=== PATIENT | female | born 1980 | race Caucasian/White ===

== ENCOUNTER 2019-06-01 14:55 | Inpatient (IN) | payer BC ==
[~2019-06-01] VITALS: Ht 162.6 cm; Wt 88.9 kg
[2019-06-01 15:14] VITALS: Ht 162.6 cm; Wt 88.9 kg
--- NOTE | 2019-06-01 15:30 | NUR ---
PT WALKED TO ROOM 11
[2019-06-01 16:01] LABS: CALCIUM 9.4 mg/dL (8.5-10.1); CARBON DIOXIDE 31.4 mmol/L (21-32); CHLORIDE SERUM 98 mmol/L (98-107); CREATININE SERUM 0.6 mg/dL (0.6-1.0); GFR1 > 60 mL/min; GLUCOSE SERUM 105 mg/dL (74-106); POTASSIUM SERUM 3.8 mmol/L (3.5-5.1); SODIUM SERUM 135 mmol/L (136-145)
[2019-06-01 16:02] LABS: PLATELET COUNT 439 x10^3mcL (130-400); RED CELL DISTRIBUTION WIDTH 18.1 % (11.5-14.5)
--- NOTE | 2019-06-01 16:06 | NUR ---
URINE SAMPLE COLLECTED, URINE DIP AND HCG DONE.
[2019-06-01 16:07] LABS: ALBUMIN 3.4 g/dL (3.4-5.0); ALKALINE PHOSPHATASE 77 U/L (46-116); ALT/SGPT 17 U/L (14-59); AST/SGOT 10 U/L (15-37); BILIRUBIN TOTAL 0.5 mg/dL (0.20-1.00); LIPASE 71 IU/L (73-393); TOTAL PROTEIN, SERUM 7.7 g/dL (6.4-8.2)
--- NOTE | 2019-06-01 16:12 | NUR ---
PT WAS MEDICATED WITH MORPHINE AND ZOFRAN PER MD ORDER.
[2019-06-01 16:15] LABS: MONOCYTE 4 % (0-7); SEGMENTED NEUTROPHILS 88 % (37-75)
[2019-06-01 16:20] LABS: rbc morphology (normal/abnorm) ABNORMAL (NORMAL)
[2019-06-01 16:21] LABS: ovalocyte/elliptocyte 1+; schistocyte (helmet cell) 1+
--- NOTE | 2019-06-01 16:43 | NUR ---
PT WAS DONE CT AND BACK TO HER ROOM. SL ESTABLISHED ON LH. 20G. NS0.9% STARTED TO RUN.
--- NOTE | 2019-06-01 18:25 | NUR ---
PT WAS ADMITED TO M/S ROOM OBTAINED BUT WAIT TO GO OR FIRST, THEN TRANSFER TO FLOOR.
--- NOTE | 2019-06-01 19:18 | NUR ---
PT HAS [id number]. REPORT WAS CALLED AND GIVEN TO YVON VALDIVIA.
--- NOTE | 2019-06-01 19:55 | NUR ---
PT TAKEN TO OR WITH SKIP TOVAR VIA [facility] REPORT GIVEN TO HIM WELL. PT [id number] VSS
--- NOTE | 2019-06-01 21:52 | NUR ---
[facility] ACCOMPANIED BY 2 RNS. PT A/A/O X 4, CALM, COOPERATIVE; WEARS CONTACTS (W/ PT). GENERALIZED WEAKNESS, ABLE TO SCOOT OVER FROM GUERNEY TO BED ON HER OWN; FALL RISK PROTOCOL IN PLACE. DENIES CHEST PAIN OR DISCOMFORT AT THIS TIME. NO ACUTE RESPIRATORY DISTRESS NOTED. ABD SOFT, ROUND, HYPOACTIVE BOWEL SOUNDS X 4 QUADS, LAST BM 05/31/19, LOOSE, POOR PO INTAKE > 3 DAYS, ABD W/ 4X INCISION (1 W/ KISHA DRAIN W/ LARGE AMOUNT OF SEROSANGUINOUS FLUID), ALL SUTURED/EUNICE/BAND AID. IV SITE LH 20G, CDI. ORIENTED PT TO ROOM, BED CONTROLS, CALL LIGHT SYSTEM. SIDE RAILS UP X 2, BED IN LOW POSITION. WILL ENDORSE TO SKIP CARREON.
[2019-06-01 22:07] VITALS: BP 118/59
--- NOTE | 2019-06-02 00:49 | NUR ---
PT C/O PAIN 05/04. MEDIACTED NORCO 5/325MG PO ORDERED. WILL CONTINUE TO MONITOR.
--- NOTE | 2019-06-02 05:20 | NUR ---
PT AWAKE,ALERT.NO SOB NOTED.C/O SURGICAL PAIN 07/04.WILL MEDICATE ORDERED.PT URINATED AND AMBULATED.KISHA DRAINED WITH SEROSANGUINOUS FLUID.BED IN LOWEST POSITION,CALL LIGHT WITHIN REACH. WILL CONTINUE TO MONITOR.
--- NOTE | 2019-06-02 05:33 | NUR ---
PT C/O SURGICAL PAIN. MEDIACTED DILAUDID 1MG IVP ORDERED. WILL CONTINUE TO MONITOR.
[2019-06-02 06:14] VITALS: BP 112/77
--- NOTE | 2019-06-02 07:22 | NUR ---
CARE ENDORSED TO DAY NURSE MAKENZIE.
[2019-06-02 08:00] VITALS: BP 102/70
--- NOTE | 2019-06-02 08:00 | NUR ---
PATIENT IS IN BED, BED IS TO THE LOWEST POSITION. PATIENT IS AWAKE, ALERT AND ORIENTED X 4. PATIENT IS ON ROOM AIR, BREATHING ADEQUATELY WITH NO SIGNS OF RESPIRATORY DISTRESS NOTED. PATIENT HAS IV ACCESS NOTED TO , SALINE LOCKED. ABDOMEN HAS 3 INCISIONS NOTED, 1 KISHA DRAIN WITH SUTURES, EUNICE AND BANDAID APPLIED. PER NIGHT NURSE PATIENT IS ABLE TO AMBULATE AND USE THE RESTROOM WITH ASSISTANCE. PATIENTS HEELS ARE OFF LOADED WITH PILLOWS, CALL LIGHT IS WITHIN REACH. WILL CONTINUE TO MONITOR.
[2019-06-02 08:40] LABS: CALCIUM 8.9 mg/dL (8.5-10.1); CHLORIDE SERUM 100 mmol/L (98-107); CREATININE SERUM 0.6 mg/dL (0.6-1.0); GFR1 > 60 mL/min; GLUCOSE SERUM 134 mg/dL (74-106); MAGNESIUM 1.7 mg/dL (1.8-2.4); PHOSPHOROUS 3.9 mg/dL (2.5-4.9); POTASSIUM SERUM 4.2 mmol/L (3.5-5.1); SODIUM SERUM 134 mmol/L (136-145)
[2019-06-02 08:46] LABS: BASOPHIL % 0 % (0-2); PLATELET COUNT 409 x10^3mcL (130-400); RED CELL DISTRIBUTION WIDTH 17.7 % (11.5-14.5)
[2019-06-02 10:31] VITALS: BP 107/71
--- NOTE | 2019-06-02 11:54 | NUR ---
PT EVALUATED BY DR. RHOADES AND MEDICAL TEAM. UPDATED ON CONDITION AND POC. MADE AWARE SHE HAD RUPTURED APPENDIX AND WOULD REQUIRE EXTRA DAYS OF HOSPITALIZATION FOR ATB. PT WAS THEN ASSISTED TO BR AND ACTIVITY WAS TOLERATED WELL. EMPTYED KISHA DRAIN AND NOTED IT WAS SANGUINOUS BUT CLOUDY, ABOUT 60ML. DR. ISAACS AND DR. WARD WHERE SHOWN DRAINAGE. DR. ISAACS STATED HE WOULD NOTIFY SURGEON OF FINDINGS, NO FURTHER ORDERS AT THIS TIME. ATTENDING NURSE MADE AWARE.
--- NOTE | 2019-06-02 12:00 | NUR ---
PATIENT STATED THAT THEY HAVE PAIN AT THIS TIME. MEDICATION GIVEN, SEE EMAR. WILL CONTINUE TO MONITOR AND REASSESS.
[2019-06-02 16:50] VITALS: BP 109/76
--- NOTE | 2019-06-02 18:30 | NUR ---
PATIENT IN BED RESTINH COMFORTABLY. PATIENT GIVEN ICE PACK FOR ABD DISCOMFT. PATIENT STABLE WILL CONTINUE TO MONITOR.
--- NOTE | 2019-06-02 20:00 | NUR ---
PATIENT RECEIVED AT THE START OF THE SHIFT AWAKE, ALERT, ORIENTED X4 IN BED. RESPIRATION EVEN AND UNLABORED, ON ROOM AIR. SALINE LOCK TO LEFT HAND PATENT AND INTACT. VOIDING FREELY WITHOUT DIFFICULTY. GENERALIZED WEAKNESS TO EXTREMITIES, NEEDS ASSISTANCE AMBULATING. SURGICAL INCISION TO ABDOMEN X3 WITH SUTURES/EUNICE COVERED WITH BANDAID WITH KISHA DRAIN. C/O INCISIONAL PAIN TO ABDOMEN, 9/10. MEDICATED WITH NORCO 5/325 MG PO ORDERED. ON CONTACT ISOLATION FOR HX OF MRSA NARES. WILL CONTINUE TO MONITOR.
--- NOTE | 2019-06-02 21:27 | NUR ---
PATIENT STILL COMPLAINING OF SURGICAL INCISION TO ABDOMEN, PS 6-5. MEDICATED WITH TORADOL 10 MG PO ORDERED. WILL CONTINUE TO MONITOR.
[2019-06-02 21:32] VITALS: BP 116/62
[2019-06-03 05:39] VITALS: BP 125/81
--- NOTE | 2019-06-03 05:59 | NUR ---
PATIENT RESTING IN BED. RESPIRATION EVEN AND UNLABORED, ON ROOM AIR. COMPLAINED OF ABDOMINAL PAIN, PS 10/10. MEDICATED WITH NORCO 5/325 MG PO. SURGICAL INCISION INTACT. KISHA DRAIN INTACT. ASSISTED WITH NEEDS. SAFETY OBSERVED. PLACED BED IN THE LOWEST POSITION. PLACED CALL LIGHT WITHIN REACH AT ALL TIMES. ON CONTACT ISOLATION FOR HX OF MRSA NARES.
[2019-06-03 06:43] LABS: CALCIUM 9.2 mg/dL (8.5-10.1); CARBON DIOXIDE 28.8 mmol/L (21-32); CHLORIDE SERUM 102 mmol/L (98-107); CREATININE SERUM 0.7 mg/dL (0.6-1.0); GFR1 > 60 mL/min; GLUCOSE SERUM 97 mg/dL (74-106); MAGNESIUM 1.9 mg/dL (1.8-2.4); PHOSPHOROUS 3.3 mg/dL (2.5-4.9); POTASSIUM SERUM 3.9 mmol/L (3.5-5.1); SODIUM SERUM 139 mmol/L (136-145)
[2019-06-03 06:51] LABS: BASOPHIL % 0.1 % (0-2)
[2019-06-03 07:12] LABS: PLATELET COUNT 437 x10^3mcL (130-400); RED CELL DISTRIBUTION WIDTH 18.4 % (11.5-14.5)
[2019-06-03 07:13] LABS: rbc morphology (normal/abnorm) ABNORMAL (NORMAL)
--- NOTE | 2019-06-03 07:15 | NUR ---
RECIEVED PT IN BED RESTING WITH NO S/S OF DISTRESS OR SOB. A/O X4. IV IN LEFT HAND, INTACT AND PATENT, NO REDNESS. SURGICAL INCISIONS AND KISHA DRAIN CDI. SAFETY PRECAUTIONS IN PLACE, CALL LIGHT WITHIN REACH, WILL MONITOR.
[2019-06-03 09:28] VITALS: BP 128/91
--- NOTE | 2019-06-03 09:48 | NUR ---
PT C/O 07/04 ABD PAIN, MEDICATED WITH DILAUDID PER EMAR. WILL REASSESS.
--- NOTE | 2019-06-03 12:00 | NUR ---
PT STABLE WITH NO DISTRESS OR SOB. CALL LIGHT WITHIN REACH, SAFETY PRECAUTIONS IN PLACE, WILL MONITOR.
--- NOTE | 2019-06-03 13:30 | NUR ---
RECIEVED CALL FROM DR FLEMING, SHE INSTRUCTED ME TO GIVE PATIENT TYLENOL FOR PAIN MANAGEMENT AND THAT DIET WILL BE CHANGED TO FULL LIQUIDS D/T PT NOT TOLERATING REGULARE DIET. DR ISAACS NOTIFIED. WILL CARRY OUT ANY NEW ORDERS.
--- NOTE | 2019-06-03 14:52 | NUR ---
PT C/O 06/03 ABD PAIN AND NAUSEA, MEDICATED WITH TYLENOL AND ZOFRAN PER EMAR AND DR ALBARADO INSTRUCTIONS. WILL REASSESS.
--- NOTE | 2019-06-03 17:00 | NUR ---
PT STABLW AND RESTING IN BED. CALL LIGHT WITHIN REACH. WILL MONITOR
[2019-06-03 17:53] VITALS: BP 138/91
--- NOTE | 2019-06-03 19:10 | NUR ---
PT RESTING IN BED WITH NO C/O DISTRESS OR SOB. PROVIDED REPOSITIONING FOR COMFORT MEASURES. TORODOL GIVEN AT 1814 FOR C/O INTERMITTENT ABD PAIN. DR FLEMING AWARE. NO FEVER NOTED. LUNGS CTA. PT AMBULATES TO RESTROOM. IV INTACT AND PATENT WITH NO REDNESS OR INFLAMMATION NOTED. INCISIONS/DRESSINGS/KISHA DRAIN CDI. DRAINED 210ML OF SEROUS FLUID. KISHA IN PLACE. SAFETY PRECAUTIONS IN PLACE, CALL LIGHT WITHIN REACH, WILL ENDORSE CARE TO NIGHT NURSE.
--- NOTE | 2019-06-03 20:25 | NUR ---
Awake and verbally responsive. No respiratory distress noted on room air. Denies pain. Denies need pain med at this time. Abdomen with incisions x3 with large bandaids intact. earnest x1 with light serous drainage. Will cont.to monitor. Call light within reach.
[2019-06-03 21:50] VITALS: BP 120/87
--- NOTE | 2019-06-04 04:32 | NUR ---
Afebrile. No significant change in condition noted. Medicated as ordered for c/o operative site pain with relief. Encouraged ambulation. (+)flatus (-)bm. No n/v noted. Cont. on IV flagyl, levaquin.
[2019-06-04 06:40] VITALS: BP 129/83
--- NOTE | 2019-06-04 07:12 | NUR ---
RECEIVED BEDSIDE REPORT FROM [employer]PORATE HE[employer] CONSULTANT NURSE AT THIS TIME. PATIENT RESTING COMFORTABLY IN BED. NO APPARENT DISTRESS OR DISCOMFORT NOTED. BREATHING EVEN AND UNLABORED. NO RESPIRATORY DISTRESS OR DISCOMFORT NOTED. PATIENT DENIES CHEST PAIN/PRESSURE AT THIS TIME. X3 INCISION NOTED WITH BANDAIDS CDI AND KISHA DRAINING TO BULB SUCTION. IV PATENT AND INTACT. ALL QUESTIONS AND CONCERNS ADDRESSED ALL NEEDS ATTENDED TO. WILL CONTINUE TO MONITOR
[2019-06-04 07:20] LABS: BASOPHIL % 0.4 % (0-2)
[2019-06-04 07:21] LABS: PLATELET COUNT 493 x10^3mcL (130-400); RED CELL DISTRIBUTION WIDTH 18.2 % (11.5-14.5)
[2019-06-04 07:37] LABS: CALCIUM 8.5 mg/dL (8.5-10.1); CARBON DIOXIDE 24.3 mmol/L (21-32); CHLORIDE SERUM 99 mmol/L (98-107); CREATININE SERUM 0.5 mg/dL (0.6-1.0); GFR1 > 60 mL/min; GLUCOSE SERUM 83 mg/dL (74-106); MAGNESIUM 1.9 mg/dL (1.8-2.4); PHOSPHOROUS 4.3 mg/dL (2.5-4.9); POTASSIUM SERUM 3.5 mmol/L (3.5-5.1); SODIUM SERUM 136 mmol/L (136-145)
[2019-06-04 09:58] VITALS: BP 124/84
--- NOTE | 2019-06-04 10:01 | NUR ---
ALL MORNING MEDICATION ADMINISTERED. PATIENT TOLERATED WELL. NO ADVERSE EFFECTS. ALL NEEDS ATTENDED TO. WILL CONTINUE TO MONITOR
--- NOTE | 2019-06-04 12:06 | NUR ---
PATIENT MEDICATED WITH TORADOL PO PRN AT THIS TIME. PATIENT TOLERATED WELL. NO ADVERSE EFFECTS NOTED. 100ML SEROUS FLUID EMPTIED FROM KISHA DRAIN AT THIS TIME. ALL NEEDS ATTENDED TO. WILL CONTINUE TO MONITOR
--- NOTE | 2019-06-04 14:04 | NUR ---
Initial Nutrition Assessment: 222/A BRANDY DIAZ HR Dx: Acute appendicitis PMHx: MRSA PSHx: Cholecystectomy (2005), gastric bypass 2003 (breast implants 2007), breast implants 2007 Labs: WBC 12.8H, HGB 10.1L Meds: Colace, flagyl, norco, zofran Diet: Full liquid PO Intake: (06/02) breakfast, lunch, dinner- 80% each Ht: 162.56cm (64") Wt: 88.9 kg (195#) BMI: 33.6 kg/m2 Bed scale: 91.7 kg IBW: 120# (54.5 kg) %IBW: 162 UBW: 195# Age: 39/F Food Allergies: NKFA Skin: incision to abd, KISHA drain Nahum: 20 Edema: none GI: S/P lap appe, c/o intermittent pain Last BM: 05/31 Per H&P, Pt is a 39 F presents with no past medical history presents with abdominal pain since Saturday afternoon. The pain began in the epigastric region and she initially thought it was constipation since she has suffered from it in the past, however the pain was different and radiated down her abdomen and to the right lower quadrant. RDN Visit (06/04): Patient was alert and oriented but was having some abd pain. Patient said that she has been trying to drink everything brought to her as part of full liquid diet tray but she still has pain associated with PO therefore it is difficult for her. Patient does not want to drink Ensure due to the amount of sugar in it. Patient also mentioned that she has gastric bypass about 15 years ago. Problem with: N/V/D/C: none Problems with: Chewing/Swallowing: none Current appetite: poor Recent wt change: none unintentionally %wt change: N/A Vitamin/Supplement use: MVI once in a while Special diet at home: regular, less sugar, small portions d/t gastric bypass Physical activity: sedentary Nutrition education given: patient did not have any nutrition/diet related questions at this time. Food-drug interactions: Colace- high fiber w/4379-2384 ml fluids Education given: no Estimated Nutritional Needs Based on ideal body weight 54.5 kg Energy: 7619-5124 kcal/d (25-30 kcal/kg) Protein: 54.5-65 g/d (1.0-1.2 g/kg)- preserve LBM Fluid: 9959-2453 ml/d (1 ml/kcal) or per doctor Nutrition Diagnosis 1. Inadequate oral intake related to abd pain evidenced by self-reported poor PO. Intervention 1. Recommend continuing full liquid diet. 2. Progress to regular diet when medically appropriate/ tolerated. Monitor/Evaluate Goal: PO intake at least 75% of estimated needs Monitor: PO intake, Labs, GI function F/U in 2-3 days as high risk 06/06-
--- NOTE | 2019-06-04 14:04 | NUR ---
1. Recommend continuing full liquid diet. 2. Progress to regular diet when medically appropriate/ tolerated.
--- NOTE | 2019-06-04 14:45 | NUR ---
EMPTIED 110ML SEROUS DRAINAGE OUT OF THE KISHA DRAIN AT THIS TIME. ALL NEEDS ATTENDED TO. WILL CONTINUE TO MONITOR
--- NOTE | 2019-06-04 16:17 | NUR ---
SPOKE TO DR ISAACS AT THIS TIME. PER DR ISAACS, PATIENT IS BEING DISCHARGED HOME TODAY WITH KISHA DRAIN. EXPLAINED TO DR ISAACS, PATIENT KISHA DRAIN HAS BEEN EMPTIED X3 TODAY. WITH 60ML IN THE START OF SHIFT, 100ML AT 1206, AND ANOTHER [address] ISA[address] FLEMING AWARE OF KISHA DRAINAGE; PER DR ISAACS HE SPOKE WITH DR FLEMING AND SHE STATES TO INSTRUCT PATIENT HOW TO DRAIN KISHA BY SELF AND TO FOLLOW UP OUTPATIENT IN DR ALBARADO OFFICE. WILL PROVIDE TELEPHONE NUMBER FOR DR FLEMING UPON DISCHARGE. ALL QUESTIONS AND CONCERNS ADDRESSED. ALL NEEDS ATTENDED TO. WILL CONTINUE TO MONITOR
[2019-06-04] MEDS ORDERED: FLA500 PO (16:23)
[2019-06-04] MEDS ORDERED: LEVAQUIN750 MG PO (16:24)
[2019-06-04] MEDS ORDERED: TOR10 PO (16:29)
--- NOTE | 2019-06-04 16:41 | NUR ---
EMPTIED 110 ML FROM PATIENT KISHA DRAIN AT THIS TIME. TAUGHT PATIENT HOW TO EMPTY OWN KISHA DRAIN. PATIENT VERBALIZE UNDERSTANDING. EDUCATED PATIENT TO DOCUMENT AMOUNT, COLOR, AND TIME OF DRAINAGE TO REPORT BACK TO DR FLEMING ON HER APPOINTMENT OUTPATIENT. ALL QUESTIONS AND CONCERNS ADDRESSED. ALL NEEDS ATTENDED TO. WILL CONTINUE TO MONITOR
[2019-06-04 17:18] VITALS: BP 124/84
[2019-06-04 17:40] VITALS: BP 127/85
--- NOTE | 2019-06-04 18:37 | NUR ---
PATIENT STABLE TO BE DISCHARGED TO HOME. DISCHARGE INSTRUCTIONS GIVEN WELL EDUCATION. INSTRUCTED PATIENT ABOUT FOLLOW UP APPOINTMENT WITH BOTH PCP AND DR FLEMING. BOTH CONTACT INFORMATION PROVIDED. PATIENT VERBALIZES UNDERSTANDING. DEMONSTRATED HOW TO DRAIN KISHA DRAIN TO PATIENTS FAMILY MEMBER AND REDEMONSTRATED TO PATIENT. BOTH PARTIES VERBALIZED UNDERSTANDING AND ALL QUESTIONS ANSWERED. IV REMOVED WITH CATH INTACT. ID BANDS REMOVED. DISCHARGE PHOTOGRAPH OF SURGICAL SITE TAKEN AND NEW BANDAGES PLACED. ALL BELONGINGS WITH PATIENT. ALL QUESTIONS AND CONCERNS ADDRESSED. ALL NEEDS ATTENDED TO. TO BE ESCORTED DOWN TO THE LOBBY
== END 2019-06-04 18:54 | disposition home or self-care (01) | DRG 853 ==
LOC: ED 14:55 → MU 17:45
PROVIDERS: Emergency Medicine; Internal Medicine; Surgery; ADMIT Internal Medicine
PROC: 0DTJ4ZZ Resection of Appendix, Percutaneous Endoscopic Approach (ICD-10-PCS; principal; 2019-06-01 20:00)
DX: A41.9 Sepsis, unspecified organism (principal); K35.32 Acute appendicitis with perforation, localized peritonitis, and gangrene, without abscess; E87.1 Hypo-osmolality and hyponatremia; E83.42 Hypomagnesemia; E66.9 Obesity, unspecified; D50.9 Iron deficiency anemia, unspecified; Z88.2 Allergy status to sulfonamides; Z82.49 Family history of ischemic heart disease and other diseases of the circulatory system; Z98.84 Bariatric surgery status; Z90.49 Acquired absence of other specified parts of digestive tract; Z86.14 Personal history of Methicillin resistant Staphylococcus aureus infection; Z98.82 Breast implant status; Z68.36 Body mass index [BMI] 36.0-36.9, adult
CPT/HCPCS: G0378; J0330; J0694; J0696; J1170; J1956; J2175; J2250; J2270; J2405; J2704; J2710; J3010; J3490; J7030; J7040; J7042; J7120; Q0162